=== PATIENT | male | born 1990 | race Caucasian/White ===

== ENCOUNTER 2016-06-04 11:25 | Emergency (ER) | payer MEDICAID ==
[2016-06-04] MEDS ORDERED: PENICILLIN VK 250 MG TABLET PO STA (12:34)
[2016-06-04] MEDS ORDERED: PENICILLIN VK 250 MG TABLET PO ONE (12:35)
== END 2016-06-04 13:05 | disposition home or self-care (01) ==
DX: K05.219 Aggressive periodontitis, localized, unspecified severity (principal); F17.200 Nicotine dependence, unspecified, uncomplicated; R03.0 Elevated blood-pressure reading, without diagnosis of hypertension
CPT/HCPCS: 41800; 99283; A9270